=== PATIENT | female | born 2000 | race Caucasian/White ===

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

== ENCOUNTER 2020-09-25 16:46 | Emergency (ER) | payer MEDICAID ==
[~2020-09-25] VITALS: Ht 162.6 cm; Wt 50.8 kg
[2020-09-25 17:46] LABS: BASOPHILS % (AUTO) 0 % (0-1); EOSINOPHILS % (AUTO) 0 % (1-7); LYMPHOCYTES % (AUTO) 20 % (22-44); MEAN CORPUSCULAR HEMOGLOBIN 30.7 pg (27.0-34.8); MEAN CORPUSCULAR HGB CONC 33.7 g/dL (32.4-35.8); MEAN PLATELET VOLUME 7.8 fL (7.4-10.4); MONOCYTES % (AUTO) 5 % (2-9); NEUTROPHILS % (AUTO) 74 % (42-75); PLATELET COUNT 234 x10^3/uL (130-400); RED BLOOD COUNT 4.52 x10^6/uL (3.82-5.3)
[2020-09-25 17:51] LABS: ALBUMIN 4.4 g/dL (3.4-5.0); ANION GAP 6 mmol/L (5-15); CALCIUM 9.2 mg/dL (8.5-10.1); CHLORIDE 111 mmol/L (98-107)
[2020-09-25 17:54] LABS: MD NO
[2020-09-25 17:56] LABS: CREATININE 0.73 mg/dL (0.55-1.02)
--- NOTE | 2020-09-25 18:09 | NUR ---
PATTERN SETTER: PT AMBULATORY TO ROOM FROM LOBBY
[2020-09-25] MEDS ORDERED: METOCLOPRAMIDE 5 MG/ML, 2ML IVPush ONE (19:00)
[2020-09-25] MEDS ORDERED: KETOROLAC 30 MG/1 ML IVPush ONE (19:00)
[2020-09-25] MEDS ORDERED: SODIUM CHLORIDE 0.9% 1,000ML IVBOLUS ONE (19:00)
[2020-09-25] MEDS ORDERED: DIPHENHYDRAMINE 50 MG/ML, 1ML IVPush ONE (19:00)
[2020-09-25] MEDS ORDERED: SODIUM CHLORIDE FLUSH 10ML SYR IVF ONE (19:00)
[2020-09-25] MEDS ORDERED: KETOROLAC 30 MG/1 ML ONE (19:01)
[2020-09-25] MEDS ORDERED: METOCLOPRAMIDE 5 MG/ML, 2ML ONE (19:01)
[2020-09-25] MEDS ORDERED: DIPHENHYDRAMINE 50 MG/ML, 1ML ONE (19:01)
--- NOTE | 2020-09-25 19:51 | NUR ---
PT SUPINE ON DARNELL RAMOS VSS. PT REPORTS IMPROVED HEADACHE AND "FEELING MUCH BETTER, I'M JUST TIRED NOW". PT DENIES ANY ADDITIONAL NEEDS AT THIS TIME. CALL LIGHT AND PERSONAL BELONGINGS WITHIN REACH.
[2020-09-25 21:09] VITALS: BP 110/74
--- NOTE | 2020-09-25 21:25 | NUR ---
Patient given discharge instructions and they have confirmed that they understand the instructions. Patient ambulatory with steady gait.
== END 2020-09-25 21:26 | disposition home or self-care (01) ==
LOC: ED 18:47
DX: R51.9 Headache, unspecified (principal); R56.9 Unspecified convulsions
CPT/HCPCS: 36415; 80048; 82040; 84703; 85025; 93005; 96361; 96374; 96375; 99284; J1200; J1885; J2765; J7030